=== PATIENT | male | born 1990 | race Caucasian/White ===

== ENCOUNTER 2022-08-18 09:25 | Inpatient (IN) | payer OTHER ==
[~2022-08-18] VITALS: Ht 182.9 cm; Wt 93.6 kg
[2022-08-18 11:03] LABS: BASOPHILS % (AUTO) 0.5 % (0.0-2.0); EOSINOPHILS % (AUTO) 0.1 % (1.0-6.0); HEMATOCRIT 47.5 % (41-53); HEMOGLOBIN 16.2 g/dL (13.5-17.5); LYMPHOCYTES # (AUTO) 1.3 K/uL (1.0-4.8); LYMPHOCYTES % (AUTO) 18.2 % (22.0-44.0); MEAN CORPUSCULAR HEMOGLOBIN 29.7 pg (26.0-34.0); MEAN CORPUSCULAR HGB CONC 34.1 G/dL (31.0-37.0); MEAN CORPUSCULAR VOLUME 87 fL (80-100); MONOCYTES # (AUTO) 0.4 K/uL (0.1-1.0); MONOCYTES % (AUTO) 6.1 % (2.0-9.0); NEUTROPHILS # (AUTO) 5.2 K/uL (1.8-7.7); NEUTROPHILS % (AUTO) 75.1 % (40.0-70.0); PLATELET COUNT (AUTO) 278 K/uL (150-450); RED BLOOD CELL COUNT(AUTO) 5.46 MIL/uL (4.50-5.90); RED CELL DISTRIBUTION WIDTH 13.2 % (11.5-14.5)
[2022-08-18 11:14] LABS: ANION GAP 11 mmol/L (8-16); CARBON DIOXIDE 26 mmol/L (22-29); CHLORIDE 102 mmol/L (98-107); GLUCOSE,RANDOM 102 mg/dL (70-110); POTASSIUM 4.4 mmol/L (3.5-5.1); SODIUM SERUM 139 mmol/L (136-145)
[2022-08-18 11:15] LABS: CALCIUM, TOTAL 9.1 mg/dL (8.8-10.5); CREATININE 0.89 mg/dL (0.60-1.30); GLOMERULAR FILTR. RATE CALC > 60 mL/min (>60); UREA NITROGEN, BLOOD 10 mg/dL (7-18)
[2022-08-18] MEDS ORDERED: ONDANSETRON HCL 4 MG/2 ML VIAL IVP PRN (11:15)
[2022-08-18] MEDS ORDERED: MAGNESIUM HYDROXIDE SUSPENSION 30 ML UDCUP PO PRN (11:15)
[2022-08-18] MEDS ORDERED: ZOLPIDEM TARTRATE 5 MG TABLET PO PRN (11:15)
[2022-08-18] MEDS ORDERED: ACETAMINOPHEN 325 MG TABLET PO PRN (11:15)
[2022-08-18 11:29] LABS: ALANINE AMINOTRANSFERASE 50 U/L (12-78); ALBUMIN 4.6 g/dL (3.4-5.0); ALKALINE PHOSPHATASE 85 U/L (46-116); ASPARTATE AMINOTRANSFERASE 24 U/L (15-37); BILIRUBIN,TOTAL 0.6 mg/dL (0.1-1.0); LIPASE 68 U/L (73-393); TOTAL PROTEIN, SERUM 8.4 g/dL (6.4-8.2)
[2022-08-18] MEDS: AmLODIPine BESYLATE 5 MG TABLET PO SCH (12:03)
[2022-08-18 13:24] LABS: AMPHET/METH SCREEN,URINE NEGATIVE (NEGATIVE); BARBITURATE SCREEN, URINE NEGATIVE (NEGATIVE); BENZODIAZEPINES SCREEN,URINE NEGATIVE (NEGATIVE); CANNABINOID SCREEN,URINE NEGATIVE (NEGATIVE); COCAINE SCREEN,URINE NEGATIVE (NEGATIVE); METHADONE SCREEN, URINE NEGATIVE (NEGATIVE); OPIATE SCREEN,URINE NEGATIVE (NEGATIVE); PHENCYCLIDINE SCREEN,URINE NEGATIVE (NEGATIVE)
[2022-08-18 13:25] LABS: COVID AG,FIA SOURCE NASOPHARYNGEAL
[2022-08-18 13:46] LABS: APPEARANCE,URINE CLEAR (CLEAR); BILIRUBIN,URINE NEGATIVE (NEGATIVE); GLUCOSE, URINE (UA) NEGATIVE (NEGATIVE); KETONES,URINE NEGATIVE (NEGATIVE); LEUKOCYTE ESTERASE ,URINE NEGATIVE (NEGATIVE); NITRATE,URINE NEGATIVE (NEGATIVE); OCCULT BLOOD,URINE NEGATIVE (NEGATIVE); PH,URINE 6.5 (5.0-8.0); PROTEIN,URINE NEGATIVE (NEGATIVE); SPECIFIC GRAVITIY, URINE 1.008 (1.003-1.030); UROBILINOGEN,URINE <=1.0 mg/dL (<=1.0)
[2022-08-18 14:02] LABS: BACTERIA,URINE Rare /HPF (None Seen); RBC,URINE None Seen /HPF (0-2); SQUAMOUS EPITHELIAL CELL,UR Rare /LPF (None Seen); WBC,URINE None Seen /HPF (0-5)
[2022-08-18 17:37] VITALS: BP 141/95
[2022-08-18 18:40] VITALS: BP 138/88
[2022-08-18 19:56] VITALS: BP 133/94
[2022-08-18 23:48] VITALS: BP 129/71
[2022-08-19 04:15] VITALS: BP 131/84
[2022-08-19 08:06] VITALS: BP 123/91
[2022-08-19] MEDS ORDERED: FAMOTIDINE 20 MG TABLET PO SCH (09:00)
[2022-08-19] MEDS: AmLODIPine BESYLATE 5 MG TABLET PO SCH (09:25)
[2022-08-19 11:48] VITALS: BP 125/79
== END 2022-08-19 13:40 | DRG 305 ==
LOC: EMS 09:27 → UNDOADMIN 16:26 → 5S 16:26
PROVIDERS: ADMIT Internal Medicine; ATTEND Internal Medicine
DX: I10 Essential (primary) hypertension (principal); R07.89 Other chest pain; Z20.822 Contact with and (suspected) exposure to COVID-19; Z82.49 Family history of ischemic heart disease and other diseases of the circulatory system
CPT/HCPCS: 71045; 80053; 80307; 81001; 83690; 84484; 85025; 93005; 99285; G0480; 36415-L1; 36415-TC

== ENCOUNTER 2022-09-22 16:32 | Emergency (ER) | payer OTHER ==
[~2022-09-22] VITALS: Ht 182.9 cm; Wt 86.4 kg
[2022-09-22] MEDS ORDERED: AMLO-257 PO ×2 (16:35→17:35)
[2022-09-22 18:01] VITALS: BP 149/98
== END 2022-09-22 18:02 | disposition home or self-care (01) ==
LOC: EMS 16:36
DX: I10 Essential (primary) hypertension (principal); Z76.0 Encounter for issue of repeat prescription
CPT/HCPCS: 99281; Z7502